=== PATIENT | female | born 1955 | race Caucasian/White ===

== ENCOUNTER 2023-07-23 15:49 | Outpatient (REF) | payer OTHER, SELFPAY | END 2023-07-23 15:50 | disposition home or self-care (01) | LOC: HO.SH 15:49 | PROVIDERS: Visit Provider Internal Medicine | DX: Z01.118 Encounter for examination of ears and hearing with other abnormal findings (principal); H90.3 Sensorineural hearing loss, bilateral | CPT/HCPCS: 92557 ==

== ENCOUNTER 2023-12-26 09:55 | Outpatient (REF) | payer SELFPAY ==
--- NOTE | 2023-12-26 11:17 | MHC.AU.HA1 ---
Hearing Aid Evaluation Date of Visit: 12/26/23 Historical Information: Description of Hearing: Mild to moderately severe sensorineural hearing loss, bilateral. Current personal amplification information, if applicable: Has previously tried OTC amplification, not satisfied. 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 Her degree and configuration of hearing loss is expected to cause difficulty even in easy listening situations. Chanelle reports that her current insurance has a $2000 hearing aid benefit per ear with prior approval required and no age limit. Reviewed amplification styles, performance levels, and costs. Chanelle has in iPhone that she would like to connect with to help her hear phone calls. She prefers the convenience of rechargeable hearing aids. Hearing Aid Prescription: Based on the individual?s shared listening needs, communication environments, dexterity, desire for connectivity, and personal preferences, the following prescription for amplification has been made: Right ear: Make, Model, Color: Oticon Intent 2 R, honey beige Battery Size: Rechargeable Architectural Associate/Slim Tube: 2/85 Type of Earmold/Dome/CShell/SlimTip: 6mm double mancuso Left ear: Make, Model, Color: Oticon Intent 2 R Battery Size: 312 Architectural Associate/Slim Tube: 2/85 Type of Earmold/Dome/CShell/SlimTip: 6mm double mancuso Plan of Care: Patient wishes to purchase hearing aids as prescribed Action Taken/Action Needed: Prior authorization to be requested Medical Clearance to be requested from PCP/ENT Comments: Return to sign hearing aid order confirmation form after prior authorization has been approved. Primary Diagnosis: H90.3 Bilateral Sensorineural Hearing Loss Signature: Provider: Ada Sutherland, [facility]
== END 2023-12-26 09:56 | disposition home or self-care (01) ==
LOC: HO.HAP 09:55
PROVIDERS: Visit Provider Internal Medicine
DX: Z46.1 Encounter for fitting and adjustment of hearing aid (principal); H90.3 Sensorineural hearing loss, bilateral
CPT/HCPCS: 92591

== ENCOUNTER 2024-01-20 13:01 | Outpatient (REF) | payer SELFPAY ==
--- NOTE | 2024-01-20 14:19 | MHC.AU.HA2 ---
Hearing Instrument Fitting- Adult- Binaural Date of Visit: 01/20/24 Hearing Instruments Dispensed: Right Ear: Make, Model, Color, Serial Number: Oticon Intent 2 R, honey beige, [id number] Marine Habitat Resource Specialist Repair Warranty: 02/13/27 Marine Habitat Resource Specialist Loss and Damage Warranty: 02/13/27 [facility] Service Plan: 01/19/27 Battery Size: Rechargeable Human Resource Internship/Slim Tube: 2/85 Earmold/Dome/CShell/SlimTip: 6mm double mancuso Type of Wax Guard: minifit prowax Left Ear: Make, Model, Color, Serial Number: Oticon Intent 2 R, honey beige, [id number] Marine Habitat Resource Specialist Repair Warranty: 02/13/27 Marine Habitat Resource Specialist Loss and Damage Warranty: 02/13/27 [facility] Service Plan: 01/19/27 Battery Size: Rechargeable Human Resource Internship/Slim Tube: 2/85 Earmold/Dome/CShell/SlimTip: 6mm double mancuso Type of Wax Guard: mnifit prowax Accessories/Assistive Technology: Smart cleaning validation consultant [phone] 02/13/27 Summary of Fitting: Fit with and oriented to binaural Oticon Intent 2 hearing aids. Verified to DSL adult 5 targets. Reduced to adaptation 1 with gradual increase. VC disabled at this time. Feedback room manager run. Reviewed charging. Reviewed maintenance and precautions. Practiced insertion and removal. Paired with iPhone. Recommendations: Recommendations: Hearing instrument care and maintenance were discussed and practiced. The instrument(s) were paired to the patient's smartphone. A hearing instrument follow-up was scheduled. Diagnosis Code(s): Primary Diagnosis: H90.3 Bilateral Sensorineural Hearing Loss Signature: Provider: Ada Sutherland, [facility]
== END 2024-01-20 13:02 | disposition home or self-care (01) ==
LOC: HO.HAP 13:01
PROVIDERS: Visit Provider Internal Medicine
DX: Z46.1 Encounter for fitting and adjustment of hearing aid (principal); H90.3 Sensorineural hearing loss, bilateral
CPT/HCPCS: 92700; V5260; V5299

== ENCOUNTER 2024-02-23 13:55 | Outpatient (REF) | payer SELFPAY ==
--- NOTE | 2024-02-23 14:33 | MHC.AU.HA3 ---
Hearing Instrument Follow-Up- Binaural Date of Visit: 02/23/24 Right Ear: Ferny, , Color, Serial Number: Oticon Intent 2 R, gladys beanne marie, [id number] Tow Motor Driver Repair Warranty: 02/13/27 Tow Motor Driver Loss and Damage Warranty: 02/13/27 [facility] Service Plan: 01/19/27 Battery Size: Rechargeable Construction Services Technician/Slim Tube: 2/85 Earmold/Dome/CShell/SlimTip:8mm double mancuso Type of Wax Guard: minifit prowax Dispensed By: [facility] Date of Fittin01/20/24 Left Ear: Ferny, Model, Color, Serial Number: Oticon Intent 2 R, gladys beanne marie, [id number] Tow Motor Driver Repair Warranty: 02/13/27 Tow Motor Driver Loss and Damage Warranty: 02/13/27 [facility] Service Plan: 01/19/27 Battery Size: Rechargeable Construction Services Technician/Slim Tube: 2/85 Earmold/Dome/CShell/SlimTip: 8mm double mancuso Type of Wax Guard: minifit prowax Dispensed By: [facility] Date of Fittin01/20/24 Follow-Up Summary: Here for follow up. Reports hearing many sounds she had not heard for a long time including the turn signal in her car. Concerns include: phone rings too loud in ears, sound is louder if domes pushed in, fianc? reports Chanelle is speaking too soft, feels like domes slip out. Adjusted ringtone level in phone settings, improvement noted. Swapped to 8mm double mancuso, improvement reported. Increased overall gain to adaptation 2 with continued gradual increase, improvement reported. Chanelle noted not wearing the hearing aids all day, particularly at home. Data logging shows 1.5 avg hours of wear. Discussed importance of consistent daily wear for adjustment to amplification. Recommendations: Recommendations: An additional follow-up was scheduled to monitor progress. Diagnosis Code(s): Primary Diagnosis: H90.3 Bilateral Sensorineural Hearing Loss Signature: Provider: Ada Sutherland, [facility]
== END 2024-02-23 13:56 | disposition home or self-care (01) ==
LOC: HO.HAP 13:55
PROVIDERS: Visit Provider Internal Medicine
DX: Z13.89 Encounter for screening for other disorder (principal)

== ENCOUNTER 2024-03-19 09:08 | Outpatient (REF) | payer SELFPAY ==
--- NOTE | 2024-03-19 11:14 | MHC.AU.HA3 ---
Hearing Instrument Follow-Up- Binaural Date of Visit: 03/19/24 Right Ear: Make, Model, Color, Serial Number: Oticon Intent 2 R, honey beige, [id number] Disbursing Officer Repair Warranty: 02/13/27 Disbursing Officer Loss and Damage Warranty: 02/13/27 [facility] Service Plan: 01/19/27 Battery Size: Rechargeable Security System Analyst/Slim Tube: 3/85 Earmold/Dome/CShell/SlimTip:8mm double mancuso Type of Wax Guard: minifit prowax Dispensed By: [facility] Date of Fittin01/20/24 Left Ear: Make, Model, Color, Serial Number: Oticon Intent 2 R, honey beige, [id number] Disbursing Officer Repair Warranty: 02/13/27 Disbursing Officer Loss and Damage Warranty: 02/13/27 [facility] Service Plan: 01/19/27 Battery Size: Rechargeable Security System Analyst/Slim Tube: 2/85 Earmold/Dome/CShell/SlimTip: 8mm double mancuso Type of Wax Guard: mnifit prowax Dispensed By: [facility] Date of Fittin01/20/24 Follow-Up Summary: Here for follow up. Chanelle reports she has been wearing the hearing aids more, but still not all day every day, notes she has a hard time remembering to put them in. Reports the aids charge in her living room and she doesn't always think to go put them on. Suggested charging aids on a dresser or nightstand, somewhere that they will be more easily integrated into her morning routine. Chanelle notes the left aid/ dome is comfortable now but the right still feels like it might come out at times, doesn't feel in far enough. Tried a size 10 dome and she reported it felt snugger. Tried a size 3 wire with 8mm dome and Chanelle reported satisfaction with the fit, sitting a bit deeper in the ear canal. Chanelle declines additional follow up, will call with problems. Recommendations: Recommendations: Hearing instrument maintenance in 6 months, or sooner if needed. Diagnosis Code(s): Primary Diagnosis: H90.3 Bilateral Sensorineural Hearing Loss Signature: Provider: Ada Sutherland, [facility]
== END 2024-03-19 09:09 | disposition home or self-care (01) ==
LOC: HO.HAP 09:08
PROVIDERS: Visit Provider Internal Medicine
DX: Z13.89 Encounter for screening for other disorder (principal)

== ENCOUNTER 2024-09-23 09:14 | Outpatient (REF) | payer SELFPAY ==
--- NOTE | 2024-09-23 09:51 | MHC.AU.HA3 ---
Hearing Instrument Follow-Up- Binaural Date of Visit: 09/23/24 Right Ear: Make, Model, Color, Serial Number: Oticon Intent 2 R, honey beige, [id number] Employee Wellness/Fitness Coordinator Repair Warranty: 02/13/27 Employee Wellness/Fitness Coordinator Loss and Damage Warranty: 02/13/27 [facility] Service Plan: 01/19/27 Battery Size: Rechargeable Replanting Machine Crewman/Slim Tube: 3/85 Earmold/Dome/CShell/SlimTip:8mm double mancuso Type of Wax Guard: minifit prowax Dispensed By: [facility] Date of Fittin01/20/24 Left Ear: Make, Model, Color, Serial Number: Oticon Intent 2 R, honey beige, [id number] Employee Wellness/Fitness Coordinator Repair Warranty: 02/13/27 Employee Wellness/Fitness Coordinator Loss and Damage Warranty: 02/13/27 [facility] Service Plan: 01/19/27 Battery Size: Rechargeable Replanting Machine Crewman/Slim Tube: 2/85 Earmold/Dome/CShell/SlimTip: 8mm double mancuso Type of Wax Guard: mnifit prowax Dispensed By: [facility] Date of Fittin01/20/24 Follow-Up Summary: Chanelle is seen for hearing aid maintenance. Reports the hearing aids have been working well but she hasn't been able to wear the right one since attempting maintenance and not being able to get the tail back on correctly. Cleaned both aids together, replaced domes and wax guards, showed how the tails are supposed to be oriented. Recommendations: Recommendations: Hearing instrument follow-up or maintenance as needed. Diagnosis Code(s): Primary Diagnosis: H90.3 Bilateral Sensorineural Hearing Loss Signature: Provider: Ada Sutherland, [facility]
== END 2024-09-23 09:15 | disposition home or self-care (01) ==
LOC: HO.HAP 09:14
PROVIDERS: Visit Provider Internal Medicine
DX: Z13.89 Encounter for screening for other disorder (principal)